=== PATIENT | male | born 1985 | race African-American/Black ===

== ENCOUNTER 2023-08-02 16:44 | Emergency (ER) | payer SELFPAY ==
[~2023-08-02] VITALS: Ht 177.8 cm; Wt 86.2 kg
[2023-08-02 17:25] VITALS: BP 126/81; PULSE 94; RESP 16; TEMP 98.6; O2SAT 98
== END 2023-08-02 20:23 | disposition left against medical advice (07) ==
LOC: ER 16:44
DX: R51.9 Headache, unspecified (principal); Z53.21 Procedure and treatment not carried out due to patient leaving prior to being seen by health care provider